=== PATIENT | female | born 1955 | race Caucasian/White ===

== ENCOUNTER → 2018-06-18 10:34 | Outpatient (CLI) | payer BC, SELFPAY ==
--- NOTE | 2018-06-18 10:36 | DI.RAD.S_ITS ---
PROCEDURE: XR FOOT LT MIN 3V INDICATIONS: left foot pain around 5th metatarsal base TECHNIQUE: 3 views of the foot were acquired. COMPARISON: None. FINDINGS: Bones: No fractures or dislocations. No suspicious bony lesions. Soft tissues: No tibiotalar joint effusion. Achilles tendon appears normal. IMPRESSION: No fracture. If the patient's symptoms do not improve recommend followup radiographs in 10 days to assess for healing sclerosis/occult injury. Dictated by: Nicanor Em M.D. on 06/18/2018 at 12:11 Approved by: Nicanor Em M.D. on 06/18/2018 at 12:14
== END ==
PROVIDERS: Visit Provider Physician Assistant
DX: M79.672 Pain in left foot (principal)
CPT/HCPCS: 73630

== ENCOUNTER → 2021-11-28 07:25 | Outpatient (CLI) | payer BC, SELFPAY ==
[2021-11-28 07:56] LABS: Hemoglobin A1C% w Est Avg Glu 5.4 % (4.0-6.0)
[2021-11-28 08:12] LABS: Alanine Aminotransferase 24 IU/L (<35); Albumin 4.3 g/dL (3.5-5.0); Albumin Globulin Ratio 1.3 (1.0-2.8); Alkaline Phosphatase 72 U/L (38-126); Aspartate Aminotransferase 31 IU/L (14-36); BUN Creatinine Ratio 18.8 (6-22); Bilirubin Total 0.4 mg/dL (0.2-1.3); Blood Urea Nitrogen 12 mg/dL (7-17); Carbon Dioxide 29 mmol/L (22-32); Chloride 104 mmol/L (98-107); Cholesterol 231 mg/dL (140-199); Estimated Glomerular Filt Rate > 60 mL/min (>60); Globulin 3.2 g/dL (1.7-4.1); Glucose 99 mg/dL (80-110); HDL Cholesterol 65 mg/dL (40-60); HEMOLYSIS < 15 (0-50); LDL Cholesterol Calculated 154 mg/dL (<100); Potassium 4.2 mmol/L (3.4-5.1); Sodium 138 mmol/L (137-145); Total Protein 7.5 g/dL (6.3-8.2); Triglycerides 62 mg/dL (35-150)
[2021-11-28 08:28] LABS: Vitamin D 25 Hydroxy (D3) 72.5 ng/mL (30.0-100.0)
[2021-11-28 08:43] LABS: TSH w/ Reflex to FT4 1.57 uIU/mL (0.47-4.68)
== END ==
PROVIDERS: PCP Family Medicine; Referring Provider Family Medicine; Visit Provider Family Medicine
DX: E78.2 Mixed hyperlipidemia (principal); R73.9 Hyperglycemia, unspecified; E55.9 Vitamin D deficiency, unspecified; M85.80 Other specified disorders of bone density and structure, unspecified site
CPT/HCPCS: 36415; 80053; 80061; 82306; 83036; 84443

== ENCOUNTER → 2021-12-26 09:37 | Outpatient (CLI) | payer BC, SELFPAY | PROVIDERS: PCP Family Medicine; Referring Provider Family Medicine; Visit Provider Family Medicine | DX: Z13.820 Encounter for screening for osteoporosis (principal); Z78.0 Asymptomatic menopausal state; E78.2 Mixed hyperlipidemia; M85.852 Other specified disorders of bone density and structure, left thigh | CPT/HCPCS: 77080 ==

== ENCOUNTER 2022-04-06 09:01 | Day surgery (SDC) | payer BC, SELFPAY ==
--- NOTE | 2022-04-06 | PATH_ITS ---
[facility] Accession Number: [id number] No. of containers..01 Tissue . 01 Material submitted: . gastrointestinal site - GASTRIC POLYP . 01 Diagnosis: Stomach, Polyp, Biopsy: Fundic gland polyp. No evidence of Helicobacter organisms on H/E stain. Negative for intestinal metaplasia. Negative for dysplasia and malignancy. MRV 04/08/2022 1526 Local . 01 Electronically signed: . Carmelita Carrera MD, Pathologist NPI- [id number] . 01 Gross description: . GASTRIC POLYP: Received in formalin are 2 fragment(s) of mills, soft tissue measuring 0.3 x 0.1 x 0.1 cm to 0.1 x 0.1 x 0.1 cm submitted entirely in 1 cassette(s) /CPE 04/07/2022 0907 Local . 01 Pathologist provided ICD-10: K31.7 . 01 CPT . 076782 Specimen Comment: A courtesy copy of this report has been sent to [phone] Performed at: 01 [facility] [address] [place] [address] [address], [place], [place] [id number] MD Moo Busch MD Phone: [phone]
[2022-04-06] MEDS: LACTATED RINGERS 1,000 ML 100 ML IV (09:16)
[2022-04-06 09:26] VITALS: BP 131/85; PULSE 95; RESP 16; TEMP 36.4; O2SAT 99; BMI 25.5
--- NOTE | 2022-04-06 09:30 | P.HP_ITS ---
History of Present Illness History of Present Illness Date Patient Seen: 04/06/22 Time Patient Seen: 09:30 Chief complaint: SDC Narrative: I reviewed my office note from the fall. Personal history of gastric and colon polyps. Patient History Medical History Allergic rhinitis (~1984) Ankle pain (~1988) Bulimia (~1978) Carpal tunnel syndrome (~1998) Chronic back pain (~1982) Chronic cough (~1984) Foot pain (~2018) Fractures (~2018) Gastric polyps Genital warts (~1980) Hyperlipidemia Insomnia due to medical condition Lichen planus (~2010) Obstructive sleep apnea, adult Osteoarthritis (~2020) Rectal bleed Ruptured tympanic membrane (~2013) Skin cancer (~1998) Sleep apnea (~2007) Vertigo (~2013) Surgical History Anesthesia History of hemorrhoidectomy (~2006) History of repair of rectocele (~12/2019) [place] teeth removed (~1972) Family & Social History Family History Family/Other Loud snoring Sleep apnea Obesity Father Heart disease Alcohol abuse Mother Loud snoring Sleep apnea Obesity Alcohol abuse Family/Other Loud snoring Alcohol abuse Sister History of coronary artery stent placement Stroke Thoracic aortic aneurysm Social History: household members spouse lives independently Yes caregiver/support person No Tobacco & Substance use: Smoking Status Never smoker alcohol intake never Meds Home Medications and Allergies Home Medications Medication Instructions Recorded Confirmed Type docusate sodium 50 mg capsule 50 mg PO DAILY 11/08/19 11/26/21 History (Colace Clear) fexofenadine 180 mg tablet 180 mg PO DAILY 11/08/19 11/26/21 History (Sarina Allergy) B-complex with vitamin C 1 tab PO DAILY 11/25/21 11/26/21 History ascorbic acid (vitamin C) 500 mg 500 mg PO DAILY 11/25/21 04/06/22 History capsule cholecalciferol (vit D3) 1,000 2 tab PO DAILY 11/25/21 11/26/21 History unit-vitamin K2 (MK4) 100 mcg tablet (K2 Plus D3) coenzyme Q10 200 mg capsule (Co 200 mg PO DAILY 11/25/21 11/26/21 History Q-10) melatonin 5 mg capsule mg PO .hs 11/25/21 11/26/21 History zinc gluconate 50 mg tablet 50 mg PO DAILY 11/25/21 11/26/21 History Allergies Allergy/AdvReac Type Severity Reaction Status Date / Time venom-wasp Allergy Intermediate swelling Verified 04/06/22 09:18 paraphenylenediamine Allergy Intermediate Hives Uncoded 04/06/22 09:18 Review of Systems Review of Systems ROS: Yes All systems reviewed with the patient and are negative except as ot herwise documented Exam Const General: cooperative HENMT Head: normal to inspection Eyes General: appearance normal, both eyes and all related structures Neck Neck: normal visual inspection Chest Chest: normal inspection of the chest Resp Effort & Inspection: normal respiratory effort Cardio Rate: regular rate GI Inspection: normal to inspection Skin General: no rashes or lesions noted Neuro General: patient alert and patient awake Extrem General: normal to inspection and no pedal edema Psych Appearance: grossly normal Assessment & Plan Assessment & Plan narrative: 66-year-old female with a personal history of colon and gastric polyps. EGD and colonoscopy are pursued today. Time Spent With Patient Critical Care time: I spent a total of [] minutes of critical care time on this patient's care today; this time is exclusive of procedural time.
--- NOTE | 2022-04-06 09:31 | PM.PREOP ---
Pre-operative Note Interval Note History & Physical reviewed/Exam performed by Physician: Yes Changes to H&P: No ASA Class (for procedural sedation): III
--- NOTE | 2022-04-06 10:08 | SUR.OPER ---
GLASSES TO PACU WITH PATIENT IN LABELED CASE
[2022-04-06 10:38] VITALS: BP 121/74; PULSE 87; RESP 16; TEMP 36.7; O2SAT 97
--- NOTE | 2022-04-06 10:38 | PM.OP.EC ---
Operative Date/Time/Diagnoses Date of procedure: 04/06/22 Time of procedure: 10:38 Pre-op diagnosis: Gastric and colon polyp history Post-op diagnosis: same Procedure & Clinicians Study performed: EGD with biopsies and colonoscopy Indications: Gastric and colon polyp history Surgeon: Pablito Sloan Procedure Notes SCOAP/Timeout: Done Procedure in detail: After the risks and benefits were explained, written and verbal informed consent was obtained. The patient was brought into the procedure room and placed into the left lateral decubitus position. Please see anesthesia notes for sedation details. The scope was introduced into the mouth through the bite block and advanced under direct visualization to the 2nd portion of the duodenum. The scope was slowly withdrawn carefully examining the mucosa for any defects or lesions. Retroflexed views were accomplished in the stomach. The stomach was decompressed, the scope was then removed from the patient who tolerated the procedure well. The patient was then turned around and a digital rectal exam accomplished. The scope was introduced into the rectum and advanced to the cecum as identified by the appendiceal orifice and ileocecal valve. The scope was slowly withdrawn to carefully examine the mucosa for any defects or lesions. Multiple direct views were made through the dentate line for exclusion of pathology. The colon was decompressed scope removed from the patient who tolerated the procedure well. Pediatric colonoscope Bowel prep adequate Scope withdrawal time: 7 minutes Sedation minutes: 24 Complications: none Impression: 1. Duodenum: This was rather tortuous but I did not appreciate any obvious mucosal pathology from the bulb into the corner into D2. 2. Stomach: No overt pathology no ulcers no mass lesions. Retroflexed views disclosed a small sliding hiatal hernia. There were a few benign diminutive polyps in the proximal stomach. A couple of these were sampled for a order entry representative histology. 3. Esophagus: The squamocolumnar junction correlated with the top of the gastric folds. GEJ was at about 37 cm from the incisors. The patient had LA grade B erosive esophagitis. No additional mucosal pathology was appreciated throughout. 4. Colon: The patient had a rather extensive diverticulosis through the sigmoid. They were even some scattered diverticula in the right colon. There was evidence of retained sutures and prior surgery involving the rectum. No stenosis. Suture line was approximately 2 cm from the dentate line. Grade 2-3 mild hemorrhoids nonthrombosed were noted. Endoscopic diagnosis 1. Diminutive gastric polyps 2. LA grade B erosive esophagitis 3. Diverticulosis 4. Hemorrhoids 5. Prior rectal surgery suture line Post-procedure Plan for aftercare: 1. Await histopathology. 2. Upper endoscopy surveillance is unlikely to be recommended if pathology is again returned fundic gland polyps. 3. Repeat colonoscopy 7 years 4. Consider [id number] anti-reflux therapy with either famotidine or omeprazole. Disposition: PACU
[2022-04-06 10:44] VITALS: BP 121/71; PULSE 87; RESP 14; TEMP 37.3; O2SAT 99
[2022-04-06 11:04] VITALS: BP 142/76; PULSE 64; RESP 15; TEMP 37.2; O2SAT 99
[2022-04-06 11:40] VITALS: BP 131/85; PULSE 95; RESP 16; TEMP 36.8; O2SAT 98
== END 2022-04-06 11:44 | disposition home or self-care (01) ==
PROVIDERS: PCP Family Medicine; Referring Provider Internal Medicine Gastroenterology; Visit Provider Internal Medicine Gastroenterology
PROC: 0DJ08ZZ Inspection of Upper Intestinal Tract, Via Natural or Artificial Opening Endoscopic (ICD-10-PCS; CPT 43235; principal; 2022-04-06 10:00)
PROC: 0DJD8ZZ Inspection of Lower Intestinal Tract, Via Natural or Artificial Opening Endoscopic (ICD-10-PCS; CPT 45378; 2022-04-06 10:00)
DX: Z12.11 Encounter for screening for malignant neoplasm of colon (principal); Z86.010 Personal history of colon polyps; Z87.19 Personal history of other diseases of the digestive system; K31.7 Polyp of stomach and duodenum; K44.9 Diaphragmatic hernia without obstruction or gangrene; K20.90 Esophagitis, unspecified without bleeding; K57.30 Diverticulosis of large intestine without perforation or abscess without bleeding; K64.2 Third degree hemorrhoids
CPT/HCPCS: 43239; 45378; J2704; J3010

== ENCOUNTER → 2022-12-11 12:24 | Outpatient (CLI) | payer BC, SELFPAY ==
[2022-12-11 13:43] LABS: Add Manual Diff / Slide Review NO; Basophils Absolute Auto 0 /uL (0-100); Basophils Percent Auto 0.6 % (0-2); Eosinophils Absolute Auto 100 /uL (0-450); Eosinophils Percent Auto 2.1 % (2-4); Hematocrit 38.6 % (36-46); Lymphocytes Absolute Auto 1500 /uL (1100-4500); Lymphocytes Percent Auto 34.5 % (25-40); Mean Corpuscular HGB Conc 33.7 % (30-36); Mean Corpuscular Hemoglobin 29.5 PG (26-34); Mean Corpuscular Volume 87.6 fL (80-100); Monocytes Absolute Auto 300 /uL (0-900); Monocytes Percent Auto 7.7 % (3-14); Neutrophils Absolute Auto 2400 /uL (1500-7000); Neutrophils Percent Auto 55.1 % (50-75); Platelet Count 212 X10^3/uL (150-400); Red Blood Cell Count 4.41 X10^6/uL (4.0-5.2); Red Cell Distribution Width 14.6 % (11.6-14.8); White Blood Cell Count 4.4 X10^3/uL (4.5-11.0)
[2022-12-11 13:58] LABS: Alanine Aminotransferase 29 IU/L (<35); Albumin 4.5 g/dL (3.5-5.0); Albumin Globulin Ratio 1.5 (1.0-2.8); Alkaline Phosphatase 65 U/L (38-126); Aspartate Aminotransferase 30 IU/L (14-36); BUN Creatinine Ratio 20.7 (6-22); Bilirubin Total 0.5 mg/dL (0.2-1.3); Blood Urea Nitrogen 12 mg/dL (7-17); Calcium 9.6 mg/dL (8.4-10.2); Carbon Dioxide 30 mmol/L (22-32); Chloride 103 mmol/L (98-107); Cholesterol 216 mg/dL (140-199); Estimated Glomerular Filt Rate > 60 mL/min (>60); Globulin 3.1 g/dL (1.7-4.1); Glucose 97 mg/dL (80-110); HDL Cholesterol 74 mg/dL (40-60); HEMOLYSIS 18 (0-50); LDL Cholesterol Calculated 125 mg/dL (<100); Potassium 3.8 mmol/L (3.4-5.1); Sodium 139 mmol/L (137-145); Total Protein 7.6 g/dL (6.3-8.2); Triglycerides 85 mg/dL (35-150)
[2022-12-11 14:44] LABS: TSH w/ Reflex to FT4 1.08 uIU/mL (0.47-4.68)
[2022-12-11 15:59] LABS: Vitamin D 25 Hydroxy (D3) 50.5 ng/mL (30.0-100.0)
[2022-12-12 15:10] LABS: Apolipoprotein B 87 mg/dL (<90)
[2022-12-15 06:00] LABS: Lipoprotein (a) 50.2 nmol/L (<75.0)
== END ==
PROVIDERS: PCP Family Medicine; Referring Provider Family Medicine; Visit Provider Family Medicine
DX: E78.5 Hyperlipidemia, unspecified (principal); G47.33 Obstructive sleep apnea (adult) (pediatric); K62.5 Hemorrhage of anus and rectum; K31.7 Polyp of stomach and duodenum; E55.9 Vitamin D deficiency, unspecified; Z82.49 Family history of ischemic heart disease and other diseases of the circulatory system
CPT/HCPCS: 36415; 80053; 80061; 82172; 82306; 83695; 84443; 85025

== ENCOUNTER → 2023-03-15 09:00 | Outpatient (CLI) | payer BC, SELFPAY ==
--- NOTE | 2023-03-15 09:01 | DI.US.S_ITS ---
ULTRASOUND OF RIGHT BREAST: 03/15/2023 CLINICAL: Palpable right breast lump. Comparison is made to exams dated: 03/15/2023 mammogram - [facility], 05/19/2021 mammogram - [facility], 01/25/2020 mammogram, 09/05/2018 mammogram, and 09/23/2016 mammogram - [facility]. Color flow and real-time ultrasound of the right breast were performed on the areas of interest. Koenig scale images of the real-time examination were reviewed. There are multiple various size irregular simple cysts in the right breast superior lateral quadrant middle depth. These irregular simple cysts are anechoic with well-defined boundaries, internal echoes, and posterior acoustic enhancement. These correlate with mammography findings. Color flow imaging demonstrates that there is no vascularity present. IMPRESSION: PROBABLY BENIGN The multiple various size irregular simple cysts in the right breast likely represent a resolving hematoma and are probably benign. A follow-up mammogram and an ultrasound in 6 months is recommended to demonstrate resolution. This exam was interpreted at Station ID: [id number]. Electronically Signed By: Debby segundo/:03/15/2023 10:16:05 letter sent: Followup Recommended Ultrasound BI-RADS: 3 Probably benign
--- NOTE | 2023-03-15 09:01 | DI.MG.S_ITS ---
BILATERAL DIGITAL DIAGNOSTIC MAMMOGRAM 3D/2D: 03/15/2023 CLINICAL: Right breast lump Via trauma. Comparison is made to exams dated: 05/19/2021 mammogram - [facility], 01/25/2020 mammogram, and 09/05/2018 mammogram - [facility]. There are scattered areas of fibroglandular density in both breasts (category b / 25%-50% glandular tissue). There is a focal asymmetry in the right breast at 11 o'clock middle depth. No other significant masses, calcifications, or other findings are seen in either breast. IMPRESSION: INCOMPLETE: NEEDS ADDITIONAL IMAGING EVALUATION A targeted ultrasound of the right breast is recommended and will be performed immediately following this exam. The focal asymmetry in the right breast likely represents a hematoma and is indeterminate. An ultrasound is recommended. Based on the Tyrer Cuzick model (a risk assessment model) the patient's lifetime risk is 7.3% and her 10 year risk is 3.7%. According to the ACR, ACS, and NCCN guidelines, an annual breast MRI exam along with mammogram is recommended if the patient's lifetime risk is 20% or greater. This exam was interpreted at Station ID: [id number]. NOTE: For mammograms, a report in lay terms will be sent to the patient. Approximately 15% of breast malignancies will not be visualized mammographically. In the management of a palpable breast mass, a negative mammogram must not discourage biopsy of a clinically suspicious lesion. Electronically Signed By: Debby segundo/radha:03/15/2023 09:46:04 ACR BI-RADS Category 0: Incomplete 3340F
== END ==
LOC: MAMMO 09:00
PROVIDERS: PCP Family Medicine; Referring Provider Family Medicine; Visit Provider Family Medicine
DX: N63.11 Unspecified lump in the right breast, upper outer quadrant (principal); R92.2 Inconclusive mammogram; N60.01 Solitary cyst of right breast; R92.323 Mammographic fibroglandular density, bilateral breasts
CPT/HCPCS: 76642; 77066; G0279

== ENCOUNTER → 2023-05-05 16:31 | Outpatient (CLI) | payer BC, SELFPAY ==
--- NOTE | 2023-05-05 16:32 | DI.US.S_ITS ---
PROCEDURE: US ABDOMEN LIMITED INDICATIONS: MASS INFERIOR TO RIGHT SCAPULA ?LIPOMA TECHNIQUE: Real-time scanning was performed of the abdominal and retroperitoneal organs, with image documentation. COMPARISON: None. FINDINGS: Ultrasound was performed in the area of palpable abnormality in the right back inferior to scapula. No sonographic abnormality is identified. IMPRESSION: No sonographic abnormality is identified in the area of interest. If clinical symptoms persist or clinical suspicion for pathology is high, consider CT or MRI with contrast for further evaluation. Dictated by: Bobby Valdez M.D. on 05/06/2023 at 9:39 Approved by: Bobby Valdez M.D. on 05/06/2023 at 9:40
== END ==
PROVIDERS: PCP Family Medicine; Referring Provider Physician Assistant; Visit Provider Physician Assistant
DX: R22.2 Localized swelling, mass and lump, trunk (principal)
CPT/HCPCS: 76705

== ENCOUNTER → 2023-06-24 10:27 | Outpatient (CLI) | payer BC, SELFPAY ==
--- NOTE | 2023-06-24 10:28 | DI.RAD.S_ITS ---
PROCEDURE: XR DEXA AXIAL SKELETON INDICATIONS: Osteopenia COMPARISON: [facility], CR, XR DEXA AXIAL SKELETON, 12/26/2021, 11:07. FINDINGS: Lumbar Spine: Bone mineral density is 0.87 g/cm2, T score -1.6, previously -1.7. Left Hip: Bone mineral density 0.85 g/cm2, T score -0.8, previously -0.7. Left Femoral Neck: Bone mineral density is 0.63 g/cm2, T score -2, previously -1.8. Right Hip: Bone mineral density is 0.85 g/cm2, T score -0.8, previously -0.6. Right Femoral Neck: Bone mineral density is 0.64 g/cm2, T score -1.9, previously -1.6. Fracture Risk Calculation (when applicable): 10-year fracture risk of a major osteoporotic fracture 11% and of a hip fracture 1.6% (T score greater or equal to -1.0 to: NORMAL) (T score from -1.1 to -2.4: OSTEOPENIA) (T score less than or equal to -2.5: OSTEOPOROSIS) IMPRESSION: Osteopenia with FRAX risks as above. Follow-up guidelines as follows: Osteoporosis: Consider a repeat DEXA and Vertebral Fracture Assessment (VFA) exam in 2 years or sooner if medically necessary, to reassess this patient's status. Osteopenia: Consider a repeat DEXA in 2-3 years to reassess this patient's status, or if there is a new clinical indication. Normal: Consider a repeat DEXA in 5 years or sooner, or if there is a new clinical indication. Dictated by: Marin Brady M.D. on 06/24/2023 at 15:34 Approved by: Marin Brady M.D. on 06/24/2023 at 15:37
== END ==
LOC: RAD 10:28
PROVIDERS: PCP Family Medicine; Referring Provider Family Medicine; Visit Provider Family Medicine
DX: M85.89 Other specified disorders of bone density and structure, multiple sites (principal)
CPT/HCPCS: 77080

== ENCOUNTER → 2023-09-06 08:28 | Outpatient (CLI) | payer BC, SELFPAY ==
--- NOTE | 2023-09-06 08:29 | DI.MG.S_ITS ---
UNILATERAL RIGHT DIGITAL DIAGNOSTIC MAMMOGRAM 3D/2D SHORT-TERM FOLLOW-UP: 09/06/2023 CLINICAL: Patient returns for a 6 month follow up of the right breast. Comparison is made to exams dated: 03/15/2023 mammogram - [facility], 05/19/2021 mammogram - [facility], and 01/25/2020 mammogram - [facility]. There are scattered areas of fibroglandular density in the right breast (category b / 25%-50% glandular tissue). There is a stable focal asymmetry in the right breast at 11 o'clock middle depth. No other significant masses or calcifications are seen in the breast. IMPRESSION: INCOMPLETE: NEEDS ADDITIONAL IMAGING EVALUATION The stable focal asymmetry in the right breast is indeterminate. An ultrasound is recommended. Based on the Tyrer Cuzick model (a risk assessment model) the patient's lifetime risk is 7.3% and her 10 year risk is 3.7%. According to the ACR, ACS, and NCCN guidelines, an annual breast MRI exam along with mammogram is recommended if the patient's lifetime risk is 20% or greater. This exam was interpreted at Station ID: [id number]. NOTE: For mammograms, a report in lay terms will be sent to the patient. Approximately 15% of breast malignancies will not be visualized mammographically. In the management of a palpable breast mass, a negative mammogram must not discourage biopsy of a clinically suspicious lesion. Electronically Signed By: Marin Brady M.D. lc/:09/06/2023 10:14:14 ACR BI-RADS Category 0: Incomplete 3340F
--- NOTE | 2023-09-06 08:29 | DI.US.S_ITS ---
ULTRASOUND OF RIGHT BREAST: 09/06/2023 CLINICAL: 6 month follow-up of hematoma. Comparison is made to exams dated: 09/06/2023 mammogram, 03/15/2023 ultrasound, 03/15/2023 mammogram - [facility], 05/19/2021 mammogram - [facility], and 01/25/2020 mammogram - [facility]. Real-time ultrasound of the right breast was performed. Koenig scale images of the real-time examination were reviewed. At 11:00 5-6cm from the nipple, various size possible complicated cysts are seen measuring up to 8-10mm in long axis. Internal echoes and septations are seen. IMPRESSION: PROBABLY BENIGN At 11:00 5-6cm from the nipple, various size possible complicated cysts are seen measuring up to 8-10mm in long axis. Internal echoes and septations are seen. These are probably benign and were previously palpable A follow-up mammogram and an ultrasound in 6 months is recommended to demonstrate stability. This exam was interpreted at Station ID: [id number]. Electronically Signed By: Marin Brady M.D. lc/:09/06/2023 10:20:12 letter sent: Followup Recommended Ultrasound BI-RADS: 3 Probably benign
== END ==
PROVIDERS: PCP Family Medicine; Referring Provider Family Medicine; Visit Provider Family Medicine
DX: R92.8 Other abnormal and inconclusive findings on diagnostic imaging of breast (principal); N60.01 Solitary cyst of right breast; R92.321 Mammographic fibroglandular density, right breast
CPT/HCPCS: 76642; 77065; G0279

== ENCOUNTER → 2023-10-29 12:52 | Outpatient (CLI) | payer BC, SELFPAY ==
--- NOTE | 2023-10-29 12:53 | DI.RAD.S_ITS ---
PROCEDURE: XR ANKLE RT MIN 3V INDICATIONS: right foot ankle pain TECHNIQUE: 3 views of the ankle were acquired. COMPARISON: None. FINDINGS: Bones: Minor spurring anterior tibial plafond and the adjacent anterior talar neck may predispose to anterior impingement on ankle dorsiflexion. No other osseous abnormalities. Tibiotalar and talocalcaneal joints: Normal in width and alignment without arthritic change. Soft tissues: Mild diffuse soft swelling noted. IMPRESSION: Chronic findings as described Dictated by: Cornel Bowens M.D. on 11/01/2023 at 7:40 Approved by: Cornel Bowens M.D. on 11/01/2023 at 7:41
--- NOTE | 2023-10-29 12:53 | DI.RAD.S_ITS ---
PROCEDURE: XR FOOT RT MIN 3V INDICATIONS: right foot ankle pain TECHNIQUE: 3 views of the foot were acquired. COMPARISON: [facility], CR, XR FOOT LT MIN 3V, 06/18/2018, 11:33. FINDINGS: Bones: There are no osseous abnormalities Joints: Mild degeneration the 1st MTP and 2nd through 5th interphalangeal joints noted. Hammertoe deformities in the 2nd through 5th digits noted. Soft tissues: No soft tissue abnormality. IMPRESSION: Chronic findings as described. Dictated by: Cornel Bowens M.D. on 11/01/2023 at 7:34 Approved by: Cornel Bowens M.D. on 11/01/2023 at 7:35
== END ==
PROVIDERS: PCP Family Medicine; Referring Provider Physician Assistant; Visit Provider Physician Assistant
DX: M19.071 Primary osteoarthritis, right ankle and foot (principal); M20.41 Other hammer toe(s) (acquired), right foot; M79.671 Pain in right foot; M25.571 Pain in right ankle and joints of right foot; M79.89 Other specified soft tissue disorders
CPT/HCPCS: 73610; 73630

== ENCOUNTER → 2024-03-21 12:21 | Outpatient (CLI) | payer BC, SELFPAY ==
--- NOTE | 2024-03-21 | DI.MG.S_ITS ---
BILATERAL DIGITAL DIAGNOSTIC MAMMOGRAM 3D/2D: 03/21/2024 CLINICAL: Short term follow up, due bilateral. Comparison is made to exams dated: 09/06/2023 mammogram, 03/15/20[address] mammogram - [facility], 05/19/2021 mammogram - [facility], and 01/25/2020 mammogram - [facility]. There are scattered areas of fibroglandular density (category b / 25%-50% glandular tissue). There are evolving areas of fat necrosis and oil cysts in the right breast at 11 o'clock middle depth. This corresponds to previously described focal asymmetry and prior area of palpable concern related to prior trauma. No significant masses, calcifications, or other findings are seen in either breast. IMPRESSION: INCOMPLETE: NEED ADDITIONAL IMAGING EVALUATION Right breast evolving fat necrosis and oil cysts at 11 o'clock middle depth related to history of prior trauma. An ultrasound is recommended for further evaluation and is scheduled to immediately follow this examination. Based on the Tyrer Cuzick model (a risk assessment model) the patient's lifetime risk is 6.9% and her 10 year risk is 3.6%. According to the ACR, ACS, and NCCN guidelines, an annual breast MRI exam along with mammogram is recommended if the patient's lifetime risk is 20% or greater. This exam was interpreted at Station ID: [id number]. NOTE: For mammograms, a report in lay terms will be sent to the patient. Approximately 15% of breast malignancies will not be visualized mammographically. In the management of a palpable breast mass, a negative mammogram must not discourage biopsy of a clinically suspicious lesion. Electronically Signed By: Desi Andrews M.D., Ph.D. eb/:03/21/2024 13:12:59 letter sent: Additional Imaging Needed ACR BI-RADS Category 0: Incomplete: Need Additional Imaging Evaluation
--- NOTE | 2024-03-21 12:23 | DI.US.S_ITS ---
LIMITED ULTRASOUND OF RIGHT BREAST: 03/21/2024 CLINICAL: 6 month follow-up of cysts. Comparison is made to exams dated: 03/21/2024 mammogram, 09/06/2023 ultrasound, 09/06/2023 mammogram, 03/15/2023 ultrasound, 03/15/2023 mammogram - [facility], and 05/19/2021 mammogram - [facility]. Color flow and real-time ultrasound of the right breast 11-12 o'clock region were performed. Koenig scale images of the real-time examination were reviewed. There is redemonstration of multiple oil cysts in the right breast at 11 o'clock at a distance of 2-4 cm from the nipple. Since prior ultrasound 09/06/2023, these findings have become increasingly anechoic. These correspond to mammographic findings. IMPRESSION: BENIGN Right breast evolving fat necrosis/oil cysts seen at the 11 o'clock position is consistent with prior history of trauma in the right breast. Finding is benign. No mammographic or sonographic evidence of malignancy. A 1 year screening mammogram is recommended. Findings and recommendations were conveyed to the patient during today's evaluation. This exam was interpreted at Station ID: [id number]. Electronically Signed By: Desi Andrews M.D., Ph.D. eb/:03/21/2024 13:35:59 letter sent: Normal Exam ACR BI-RADS Category 2: Benign
== END ==
PROVIDERS: PCP Family Medicine; Referring Provider Family Medicine; Visit Provider Family Medicine
DX: R92.8 Other abnormal and inconclusive findings on diagnostic imaging of breast (principal); N60.01 Solitary cyst of right breast; N64.1 Fat necrosis of breast
CPT/HCPCS: 76642; 77066; G0279

== ENCOUNTER 2024-04-01 17:29 | Emergency (ER) | payer BC, SELFPAY ==
[2024-04-01 17:31] VITALS: BP 142/85; PULSE 89; RESP 16; TEMP 36.8; O2SAT 96; BMI 29.2
[2024-04-01 17:36] VITALS: BP 142/85; PULSE 96; O2SAT 97
--- NOTE | 2024-04-01 17:50 | ED_ITS ---
<Statement entered by Evert Roach DO - 04/01/24 20:15> Dr. Roach: I was immediately available in the department for consultation. I did not actually see the patient. HPI - Animal Bite General Chief Complaint: Animal Bite Stated Complaint: bit by dog Time Seen by Provider: 04/01/24 17:50 Source: patient Mode of arrival: Ambulatory History of Present Illness HPI narrative: Ms. Pham is a pleasant 68 year old female with no reported past medical history presents to the emergency department after sustaining a dog bite to her left hand at approximately 3:15 p.m. this afternoon. Patient states that there was a homeless lady sitting outside of the door with her dog and she attempted to cover the dog with a blanket to be nice with the dog turned around and bit her left hand. She was not able to get any of the contact information for the dog intelligence specialist, at 1st she did not think the bite broken a skin however she later developed some bleeding from the spot which prompted her to come to the emergency department. Her tetanus shot was 09/01/2022. She is not allergic to any medications and is not on any blood thinners. She denies any pain of the hand. Related Data Home Medications Medication Instructions Recorded Confirmed docusate sodium 50 mg capsule 50 mg PO DAILY 11/08/19 03/02/24 (Colace Clear) fexofenadine 180 mg tablet 180 mg PO DAILY 11/08/19 03/02/24 (Sarina Allergy) cholecalciferol (vit D3) 1,000 2 tab PO DAILY 11/25/21 03/02/24 unit-vitamin K2 (MK4) 100 mcg tablet (K2 Plus D3) melatonin 5 mg capsule mg PO .hs 11/25/21 03/02/24 zinc gluconate 50 mg tablet 50 mg PO DAILY 11/25/21 03/02/24 omeprazole magnesium 20 mg 20 mg PO DAILY 12/08/22 03/02/24 capsule,delayed release (Acid Assembly Instructions Writer (omeprazole)) clobetasol 0.05 % topical ointment topical 03/02/24 03/02/24 Previous Rx's Medication Instructions Recorded amoxicillin 875 mg-potassium 1 tab PO BID 5 days #10 tabs 04/01/24 clavulanate 125 mg tablet Allergies Allergy/AdvReac Type Severity Reaction Status Date / Time venom-wasp Allergy Intermediate swelling Verified 03/02/24 16:37 paraphenylenediamine Allergy Intermediate Hives Uncoded 03/02/24 16:37 Review of Systems Review of Systems ROS Unobtainable: All systems reviewed & are unremarkable except as noted in HPI and below Patient History Medical History Hyperlipidemia Osteoarthritis (~2020) Sleep apnea (~2007) Chronic cough (~1984) Bulimia (~1978) Fractures (~2018) Foot pain (~2018) Chronic back pain (~1982) Carpal tunnel syndrome (~1998) Ankle pain (~1988) Vertigo (~2013) Ruptured tympanic membrane (~2013) Lichen planus (~2010) Genital warts (~1980) Skin cancer (~1998) Rectal bleed Gastric polyps Allergic rhinitis (~1984) Obstructive sleep apnea, adult Insomnia due to medical condition Surgical History Anesthesia [place] teeth removed (~1972) History of hemorrhoidectomy (~2006) History of repair of rectocele (~12/2019) Family History Family/Other Loud snoring Sleep apnea Obesity Father Heart disease Alcohol abuse Mother Loud snoring Sleep apnea Obesity Alcohol abuse Family/Other Loud snoring Alcohol abuse Sister History of coronary artery stent placement Stroke Thoracic aortic aneurysm Social History marital status: details: dario Bangura, lives in [place] number of children: 4 household members: spouse lives independently: Yes caregiver/support person: No housing: house education level: other occupational status: employed Smoking Status: Never smoker alcohol intake: never substance use type: does not use Smoking Status: Never smoker Exam Narrative Exam Narrative: GENERAL: 68 year old patient appears stated age. Well-developed patient, in no acute distress. HEAD: Atraumatic. Normocephalic. CARDIOVASCULAR: Regular rate RESPIRATORY: ?Nonlabored respirations. ?Speaking in clear, full sentences. ?? EXTREMITIES: Full range of motion of left hand, strong radial pulse, brisk capillary refill, sensation intact to light touch and distribution of median, radial, ulnar nerve. NEURO: AOx3. ?Clear speech. ?Moves all 4 extremities appropriately. SKIN: 2 mm superficial laceration/abrasion dorsal aspect left hand in web space between 1st and 2nd digits Initial Vital Signs Initial Vital Signs: Vital Signs Temperature 98.2 F 04/01/24 17:31 Pulse Rate 89 04/01/24 17:31 Respiratory Rate 16 04/01/24 17:31 Blood Pressure 142/85 H 04/01/24 17:31 Pulse Oximetry 96 04/01/24 17:31 Oxygen Delivery Method Room Air 04/01/24 17:31 Course Orders Ordered: Discontinued Medications Amoxicillin/Clavulanate Potassium (Amoxicillin/Clav 875/125 Mg) 1 tab PO NOW ONE Stop: 04/01/24 18:23 Last Admin: 04/01/24 18:29 Dose: 1 tab Rabies Immune Globulin (Rabies Immune Globulin 300 Unit/Ml 3ml Vial) 1,542 unit 20 unit/kg (1542 unit) IM NOW ONE Stop: 04/01/24 18:39 Rabies Vaccine (Rabies Vaccine (Rabavert) 2.5 Units Syringe) 2.5 units IM .ONCE ONE Stop: 04/01/24 18:39 Last Admin: 04/01/24 18:59 Dose: 2.5 units Vital Signs Vital signs: Vital Signs - 8 hr 04/01/24 17:31 Temperature 98.2 F Pulse Rate 89 Respiratory Rate 16 Blood Pressure 142/85 H Pulse Oximetry 96 Oxygen Delivery Method Room Air MDM - Animal Bite Medical Records Attestation: I reviewed the patient's medical records. [facility] Narrative Medical decision making narrative: 68 year old female with no reported past medical history presents to the emergency department after sustaining a dog bite to her left hand at approx imately 3:15 p.m. this afternoon. Differential diagnosis includes but is not limited to laceration, puncture wound, abrasion, infection, rabies exposure, etc. On exam patient is in no acute distress, nontoxic appearing, vital signs appropriate. She has a very superficial wound on the left hand, no pain with palpation or range of motion of the hand, neurovascularly intact. Bite from a homeless women's dog, unable to contact the intelligence specialist or track down the dog, after shared decision-making the patient would like to proceed with rabies post exposure prophylaxis, she understands the risk of rabies from a dog is low but unable to monitor dog or do 10 day quarantine. We will treat with rabies immune globulin 20 international units/kilogram and rabies vaccine today, patient understands to return on days 3, 7, 14 for subsequent rabies vaccine doses. Dog bite form was filled out. Patient discussed that she may try to reach out of the police/animal control to see of the dog can be located. Patient was provided with 1st dose of Augmentin in the emergency department, we will treat empirically with Augmentin b.i.d. x5 days, discussed proper wound care. The dog bite wound was cleansed and irrigated extensively with both Betadine and tap water. First dose of vaccine was administered into the right deltoid, immune globulin was injected adjacent to the wound in the left hand and the remainder was injected into the left thigh. Patient provided with appropriate dates to return to the ED for subsequent vaccine doses. She verbalized understanding of all information, all of her questions were answered. ED return precautions discussed. She is stable for discharge home. Discharge Plan Departure Patient Disposition: Home Clinical Impression: Need for post exposure prophylaxis for rabies Dog bite of left hand Qualifiers: Encounter type: initial encounter Qualified Code(s): S61.452A - Open bite of left hand, initial encounter Instructions: DI for Dog Bite Activity Restrictions/Additional Instructions: Thank you for coming to the emergency department. Today you were evaluated for a dog bite to the left hand. The wound was cleansed and you were given the first dose of antibiotics. You also made the decision to start rabies post exposure prophylaxis, and today you received the rabies immune globulin and day 0 of the rabies vaccine. You will need to return to the emergency department on on days ?3, 7, 14 for subsequent doses of the rabies vaccine. Please feel free to contact the local health department or animal control for further guidance. Day 0: Apr 01 (today) Day 3: Apr 04Wednesday Day 7: April 08Wednesday Day 14: April 15Wednesday For the wound on your hand, please keep it clean, dry, covered with a bandage and antibiotic ointment at all time. Avoid soaking the hand in any water such as pool, ocean, dish water. Complete the full course of antibiotics. If you developed increased redness, swelling, heat around the wound or streaking redness or pus drainage from the wound return to the ER immediately. Please follow up with your primary care doctor within the next 2-3 days for ER follow-up. (If you do not have a PCP you can call [phone]. ?to schedule an appointment with an [facility] Primary Care Provider) IF YOU DEVELOP ANY NEW OR WORSENING SYMPTOMS, RETURN TO THE ER! Please read the attached instructions, they highlight more specific treatments and interventions for you at home. Thank you for letting me participate in your care, Piedad Goldberg PA-C Prescriptions: New amoxicillin-pot clavulanate 875-125 mg tablet 1 tab PO BID 5 Days Qty: 10 0RF No Action omeprazole magnesium [Acid Assembly Instructions Writer (omeprazole)] 20 mg capsule,delayed release(DR/EC) 20 mg PO DAILY K2 Plus D3 1,000-100 unit-mcg tablet 2 tab PO DAILY melatonin 5 mg capsule PO .hs zinc gluconate 50 mg tablet 50 mg PO DAILY clobetasol 0.05 % ointment topical fexofenadine [Sarina Allergy] 180 mg tablet 180 mg PO DAILY Colace Clear 50 mg capsule 50 mg PO DAILY Referrals: Gilbert Jensen MD [Primary Care Provider] - Stand Alone Forms: Patient Portal/API/Survey
[2024-04-01] MEDS: AMOXICILLIN/CLAV 875/125 MG 1 TAB PO (18:29)
[2024-04-01] MEDS: RABIES VACCINE (RABAVERT) 2.5 UNITS SYRINGE IM (18:59)
[2024-04-01] MEDS: RABIES IMMUNE GLOBULIN 300 UNIT/ML 1542 UNIT IM (19:10)
[2024-04-01 19:42] VITALS: BP 158/89; PULSE 76; TEMP 36.4; O2SAT 95
--- NOTE | 2024-04-01 19:52 | PC.NURSE ---
Small bite noted on left hand after pt attempted to cover homeless dog with towel/blanket; dog retaliated and bit pt in hand. Pt states her tetanus is UTD
[2024-04-01 19:53] VITALS: RESP 16
== END 2024-04-01 19:54 | disposition home or self-care (01) ==
PROVIDERS: Emergency Provider Physician Assistant; PCP Family Medicine
DX: S61.452A Open bite of left hand, initial encounter (principal); W54.0XXA Bitten by dog, initial encounter; Z20.3 Contact with and (suspected) exposure to rabies; Z23 Encounter for immunization
CPT/HCPCS: 90375; 90471; 90675; 96372; 99283

== ENCOUNTER 2024-04-04 09:31 | Emergency (ER) | payer BC, SELFPAY ==
[2024-04-04 09:40] VITALS: BP 134/67; PULSE 87; RESP 18; TEMP 36.5; O2SAT 98; BMI 29.2
--- NOTE | 2024-04-04 09:40 | ED.GENADULT ---
HPI - General Adult General Chief complaint: Recheck/Abnormal Lab/Rx Stated complaint: 2nd Rabies shot Time Seen by Provider: 04/04/24 09:40 Source: patient, RN notes reviewed and old records reviewed Mode of arrival: Ambulatory Limitations: no limitations History of Present Illness HPI narrative: 68-year-old female presents for rabies immunization after sustaining a dog bite to her left hand was seen on 04/01/2024 in his following up for her 2nd immunization. Tetanus was updated in 2022. She has been taking Augmentin for the dog bite. Patient states everything has been we had healing well. She accidentally scratched with a dog bite the other day it bled a little bit she washed it states it has been doing well otherwise. She states no side effects from her immunization. No other complaints currently. Related Data Home Medications Medication Instructions Recorded Confirmed docusate sodium 50 mg capsule 50 mg PO DAILY 11/08/19 03/02/24 (Colace Clear) fexofenadine 180 mg tablet 180 mg PO DAILY 11/08/19 03/02/24 (Sarina Allergy) cholecalciferol (vit D3) 1,000 2 tab PO DAILY 11/25/21 03/02/24 unit-vitamin K2 (MK4) 100 mcg tablet (K2 Plus D3) melatonin 5 mg capsule mg PO .hs 11/25/21 03/02/24 zinc gluconate 50 mg tablet 50 mg PO DAILY 11/25/21 03/02/24 omeprazole magnesium 20 mg 20 mg PO DAILY 12/08/22 03/02/24 capsule,delayed release (Acid Superintendent Job (omeprazole)) clobetasol 0.05 % topical ointment topical 03/02/24 03/02/24 Previous Rx's Medication Instructions Recorded amoxicillin 875 mg-potassium 1 tab PO BID 5 days #10 tabs 04/01/24 clavulanate 125 mg tablet Allergies Allergy/AdvReac Type Severity Reaction Status Date / Time venom-wasp Allergy Intermediate swelling Verified 03/02/24 16:37 paraphenylenediamine Allergy Intermediate Hives Uncoded 03/02/24 16:37 Review of Systems Review of Systems ROS Unobtainable: All systems reviewed & are unremarkable except as noted in HPI and below Patient History Medical History Hyperlipidemia Osteoarthritis (~2020) Sleep apnea (~2007) Chronic cough (~1984) Bulimia (~1978) Fractures (~2018) Foot pain (~2018) Chronic back pain (~1982) Carpal tunnel syndrome (~1998) Ankle pain (~1988) Vertigo (~2013) Ruptured tympanic membrane (~2013) Lichen planus (~2010) Genital warts (~1980) Skin cancer (~1998) Rectal bleed Gastric polyps Allergic rhinitis (~1984) Obstructive sleep apnea, adult Insomnia due to medical condition Surgical History Anesthesia [place] teeth removed (~1972) History of hemorrhoidectomy (~2006) History of repair of rectocele (~12/2019) Family History Family/Other Loud snoring Sleep apnea Obesity Father Heart disease Alcohol abuse Mother Loud snoring Sleep apnea Obesity Alcohol abuse Family/Other Loud snoring Alcohol abuse Sister History of coronary artery stent placement Stroke Thoracic aortic aneurysm Social History marital status: details: dario Bangura, lives in [place] number of children: 4 household members: spouse lives independently: Yes caregiver/support person: No housing: house education level: other occupational status: employed Smoking Status: Never smoker alcohol intake: never substance use type: does not use Smoking Status: Never smoker Exam Narrative Exam Narrative: GENERAL: Alert and oriented x three, female in no acute distress HEENT: Head normocephalic, atraumatic, EOMI, pupils reactive, face symmetric, moist mucous membranes NECK: Supple, full range of motion EXTREMITIES: Normal range of motion, no clubbing or edema. Neurovascularly intact. Patient has small puncture over the left proximal that appears to be clean dry and healing. NEUROLOGICAL: Cranial nerves II through XII grossly intact. Moving all extremities SKIN: Warm, dry, no petechiae, no rashes or lesions otherwise noted. Initial Vital Signs Initial Vital Signs: Vital Signs Temperature 97.7 F 04/04/24 09:40 Pulse Rate 87 04/04/24 09:40 Respiratory Rate 18 04/04/24 09:40 Blood Pressure 134/67 04/04/24 09:40 Pulse Oximetry 98 04/04/24 09:40 Oxygen Delivery Method Room Air 04/04/24 09:40 Course Orders Ordered: Discontinued Medications Rabies Vaccine (Rabies Vaccine (Rabavert) 2.5 Units Syringe) 2.5 units IM .ONCE ONE Stop: 04/04/24 09:41 Last Admin: 04/04/24 09:53 Dose: 2.5 units Documented By: TESSA Vital Signs Vital signs: Vital Signs - 8 hr 04/04/24 09:40 Temperature 97.7 F Pulse Rate 87 Respiratory Rate 18 Blood Pressure 134/67 Pulse Oximetry 98 Oxygen Delivery Method Room Air Medical Decision Making MDM Narrative Medical decision making narrative: 68-year-old female encounter for repeat rabies immunization wound on her hand appears to be healing well from her dog bite. Discharge Plan Departure Patient Disposition: Home Clinical Impression: Encounter for repeat administration of rabies vaccination Instructions: DI for Rabies Vaccine Activity Restrictions/Additional Instructions: Please return for your next immunization placed on the schedule below: Day 7: April 08Wednesday Day 14: April 15Wednesday Return if you developed increased redness, swelling, heat around the wound or streaking redness or pus drainage from the wound return to the ER immediately or any other new or concerning changes. Prescriptions: No Action omeprazole magnesium [Acid Superintendent Job (omeprazole)] 20 mg capsule,delayed release(DR/EC) 20 mg PO DAILY K2 Plus D3 1,000-100 unit-mcg tablet 2 tab PO DAILY melatonin 5 mg capsule PO .hs zinc gluconate 50 mg tablet 50 mg PO DAILY clobetasol 0.05 % ointment topical amoxicillin-pot clavulanate 875-125 mg tablet 1 tab PO BID 5 Days Qty: 10 0RF fexofenadine [Sarina Allergy] 180 mg tablet 180 mg PO DAILY Colace Clear 50 mg capsule 50 mg PO DAILY Referrals: Gilbert Jensen MD [Primary Care Provider] - Stand Alone Forms: Patient Portal/API/Survey
[2024-04-04] MEDS: RABIES VACCINE (RABAVERT) 2.5 UNITS SYRINGE IM (09:53)
--- NOTE | 2024-04-08 08:21 | PC.NURSE ---
04/08/24 @0821-- pt called regarding rabies vaccination. states that more information has been obtained in regard to the dog that bit her and the dogs vaccination status which is fully vaccinated domestic animal. Pt has already received 2 vaccinations in the series and wants to decline the rest. Asking what she is to do with the [facility] form. Advised that she needs to call the [place] [facility] on Wednesday, (today is Wednesday) and ask if she can send in uncompleted form with updated information on the dog's vaccination status. Advised there is nothing the ED needs to do further. Advised to follow up with PCP as needed. Pt number [phone]
== END 2024-04-04 10:05 | disposition home or self-care (01) ==
PROVIDERS: Emergency Provider Emergency Medicine; PCP Family Medicine
DX: Z23 Encounter for immunization (principal); Z71.85 Encounter for immunization safety counseling; S61.452D Open bite of left hand, subsequent encounter; W54.0XXD Bitten by dog, subsequent encounter
CPT/HCPCS: 90471; 90675; 99283; 99284

== ENCOUNTER → 2024-06-21 08:41 | Outpatient (CLI) | payer BC, SELFPAY ==
[2024-06-21 09:46] LABS: Add Manual Diff / Slide Review NO; Basophils Absolute Auto 0 /uL (0-100); Basophils Percent Auto 0.3 % (0-2); Eosinophils Absolute Auto 100 /uL (0-450); Eosinophils Percent Auto 3.6 % (2-4); Hematocrit 39.6 % (36-46); Hemoglobin 13.5 g/dL (12.0-16.0); Lymphocytes Absolute Auto 1400 /uL (1100-4500); Mean Corpuscular HGB Conc 34.1 % (30-36); Mean Corpuscular Hemoglobin 29.1 PG (26-34); Mean Corpuscular Volume 85.4 fL (80-100); Monocytes Absolute Auto 300 /uL (0-900); Monocytes Percent Auto 8.7 % (3-14); Neutrophils Absolute Auto 2100 /uL (1500-7000); Neutrophils Percent Auto 52.4 % (50-75); Platelet Count 194 X10^3/uL (150-400); Red Blood Cell Count 4.63 X10^6/uL (4.0-5.2); Red Cell Distribution Width 14.4 % (11.6-14.8)
[2024-06-21 10:10] LABS: Alanine Aminotransferase 28 IU/L (<35); Albumin 4.5 g/dL (3.5-5.0); Albumin Globulin Ratio 1.9 (1.0-2.8); Alkaline Phosphatase 71 U/L (38-126); Aspartate Aminotransferase 28 IU/L (14-36); BUN Creatinine Ratio 17.4 (6-22); Bilirubin Total 0.6 mg/dL (0.2-1.3); Blood Urea Nitrogen 12 mg/dL (7-17); Calcium 9.5 mg/dL (8.4-10.2); Carbon Dioxide 26 mmol/L (22-32); Chloride 105 mmol/L (98-107); Cholesterol 239 mg/dL (140-199); Estimated Glomerular Filt Rate > 60 mL/min (>60); Globulin 2.4 g/dL (1.7-4.1); Glucose 108 mg/dL (70-99); HDL Cholesterol 73 mg/dL (40-60); HEMOLYSIS < 15 (0-50); LDL Cholesterol Calculated 148 mg/dL (<100); Potassium 4.3 mmol/L (3.4-5.1); Sodium 140 mmol/L (137-145); Total Protein 6.9 g/dL (6.3-8.2); Triglycerides 90 mg/dL (35-150)
[2024-06-21 10:13] LABS: Hemoglobin A1C% w Est Avg Glu 5.7 % (4.0-6.0)
[2024-06-21 10:29] LABS: Vitamin D 25 Hydroxy (D3) 65.8 ng/mL (30.0-100.0)
[2024-06-21 10:38] LABS: TSH w/ Reflex to FT4 1.21 uIU/mL (0.47-4.68)
== END ==
PROVIDERS: Family Provider Family Medicine; PCP Family Medicine; Referring Provider Physician Assistant; Visit Provider Physician Assistant
DX: M85.80 Other specified disorders of bone density and structure, unspecified site (principal); Z78.0 Asymptomatic menopausal state; E78.5 Hyperlipidemia, unspecified; G47.33 Obstructive sleep apnea (adult) (pediatric); Z68.29 Body mass index [BMI] 29.0-29.9, adult; R73.03 Prediabetes
CPT/HCPCS: 36415; 80053; 80061; 82306; 83036; 84443; 85025

== ENCOUNTER 2024-07-05 08:15 | Outpatient (RCR) | payer BC, SELFPAY ==
--- NOTE | 2024-06-28 12:24 | PT.OIE ---
Current Diagnoses Uterovaginal prolapse, unspecified (06/28/24) Pelvic muscle wasting (06/28/24) Other specified postprocedural states (06/28/24) Past Medical History (Last Updated 06/20/24 @ 11:[address] PA-C) Allergic rhinitis (~1984) Ankle pain (~1988) Bulimia (~1978) Carpal tunnel syndrome (~1998) Chronic back pain (~1982) Chronic cough (~1984) Foot pain (~2018) Fractures (~2018) Gastric polyps Genital warts (~1980) Hyperlipidemia Insomnia due to medical condition Lichen planus (~2010) Obstructive sleep apnea, adult Osteoarthritis (~2020) Rectal bleed Ruptured tympanic membrane (~2013) Skin cancer (~1998) Sleep apnea (~2007) Vertigo (~2013) Past Surgical History (Last Reviewed 04/04/24 @ 09:49 by Katie Portillo DO) Anesthesia History of hemorrhoidectomy (~2006) History of repair of rectocele (~12/2019) [place] teeth removed (~1972) Visit Care Team Role Provider Type Gilbert Jensen MD Attending Provider Physician Family Provider Primary Care Provider Referring Provider Specialty: Family Practice Address: [address] [place] [address] Email: [email or web address] Physical Therapy Initial Evaluation PT-OP-A Visit Information Start: 06/28/24 08:13 Freq: Status: Active Protocol: Document 06/28/24 08:15 [facility] (Rec: 06/28/24 08:28 [facility] [id number]) Out-Patient Physical Therapy Visit Information Visit Information Visit Type Initial Evaluation Visit Start Time 08:15 Visit Stop Time 09:00 Visit Number 1 Evaluation Information Evaluation Date 06/28/24 PT-OP-B Current Condition Start: 06/28/24 08:13 Freq: Status: Active Protocol: Document 06/28/24 08:15 [facility] (Rec: 06/28/24 08:28 [facility] [id number]) Current Condition History of Current Condition Onset Date 4 weeks ago Current Complaints surgery 05/26/24 and pt has been under precautions since then History of Current Condition 4 weeks post op cystcele repair. she wants to return to strength training, and the pool. She has two more weeks before she can return to the pool. SHe will be gone July 17- She hasn't had any leakage just pelvic organ protrusion prior to surgery. 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 hx of 2 vaginal deliveries hx of lichen planus she has had since 2010 and she uses Clobetasol almost every day and this helps keep it under control PT-OP-I Pelvic Floor Start: 06/28/24 08:13 Freq: Status: Active Protocol: Document 06/28/24 08:15 [facility] (Rec: 06/28/24 12:10 [facility] [id number]) Pelvic Floor Assessment Urine Pelvic Floor Surgery Yes: 4 weeks s/p cystocele repair Pelvic Clock Pelvic Clock Other external assessment of pelvic clock reveals decreased ability to tighten and sustain a pelvic floor contraction Contraction Ability Voluntary Contraction Weak Voluntary Relaxation Weak Muscle Endurance (Seconds) 4 Comments Pelvic Floor Comments pt reported she is not yet cleared for vaginal pelvic floor assessment as she is 4 weeks s/p surgery. All pelvic floor assessments were done externally PT-OP-M Strength Start: 06/28/24 08:13 Freq: Status: Active Protocol: Document 06/28/24 08:15 [facility] (Rec: 06/28/24 12:23 [facility] [id number]) Trunk Strength Trunk Manual Muscle Testing Core Stabilization decreased inner core activation and strength Hip Strength Hip Manual Muscle Testing Left Flexion (L2) 4 Good Extension (S1) 4 Good PT-OP-Q Treatments Start: 06/28/24 08:13 Freq: Status: Active Protocol: Document 06/28/24 08:46 [facility] (Rec: 06/28/24 08:53 [facility] [id number]) Therapeutic Exercises Supine Exercises happy baby Reps/Minutes hold 1-2 min hooklying abduction with theraband Reps/Minutes x 10 reps adductor assist for pelvic floor Equipment Used x 10 reps pelvic floor long holds Reps/Minutes 5 sec hold and 10 sec rest Sitting Exercises sit to stand with pelvic floor engagement Reps/Minutes x 10 reps PT-OP-T Assessment and Plan Start: 06/28/24 08:13 Freq: Status: Active Protocol: Document 06/28/24 08:15 [facility] (Rec: 06/28/24 09:27 [facility] [id number]) Physical Therapy Assessment Rehab Potential Rehabilitation Potential Excellent Evaluation Complexity Number of Personal Factors/Comorbidities 1-2 Number of Body Systems Impaired 3 Clinical Presentation at Evaluation Stable Impairments Impairments Activity Tolerance,Functional Activities,Strength Goals 3 Impairment Vero lacks a home program for pelvic floor rehabilitation as well as generalized strength training. Jute Bag Cutting Machine Operator Goal (LTG) Vero is independent with a home program with good form LTG Duration 8 weeks 2 Impairment LE weakness and difficulty with standing squat using a hip hinge Short Term Goal (STG) Vero is able to perform sit- stand with hip hinge and pelvic floor brace STG Duration 4 weeks Jute Bag Cutting Machine Operator Goal (LTG) Vero is able to perform a hip hinge for her squat and demonstrate safe and good form for lifting a laundry basket and or dishes out of the appeals nurse LTG Duration 8 weeks 1 Impairment decreased pelvic floor strength and endurance s/p cystocele repair 05/26/24 Short Term Goal (STG) Vero is able to properly facilitate her pelvic floor and sustain a pelvic floor contraction for 10 seconds in supine STG Duration 4 weeks Jute Bag Cutting Machine Operator Goal (LTG) Vero is able to facilitate her pelvic floor in standing and is able to brace prior to cough or sneeze or before lifting a laundry basket LTG Duration 8 weeks Assessment Summary Assessment Vero is a 68 year old female who is 4 weeks s/p cystocele repair/anterior vaginal repair . She reports she was cleared to begin PT. Her goal is to work on strengthening to be able to return to a strength exercise program as well as return to exercising in the pool. She has two weeks before she is able to return to the pool for exercise. Vero has a history of hemorrhoidectomy in 2006 and rectocele repair in 2019. She reports having a history of chronic constipation as well as difficulty emptying her bowel without straining. She has worked hard getting her bowel movements under control. Prior to surgery she worked with her doctor on supplements for improved bowel movements and feels she is doing so much better now with bowel movements. She also has a history of allergies and chronic cough which she feels has contributed to her prolapse symptoms. At this point she is feeling really good about how her surgery went and is not complaining of any pressure or heaviness. She denies any urinary incontinence symptoms . Activities at home that feel difficult to her right now include bending over to unload the appeals nurse or bending over to diamond picker packages. 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 Vero requested external pelvic floor assessment today and time was spent on pelvic floor anatomy and proper pelvic floor contraction. She presents with core weakness but is able to facilitate her pelvic floor. Ability to sustain a pelvic floor contraction in limited. Vero presents with decreased functional strength of the LE and lacks hip hinge in a standing mini squat position. She would benefit from exercise progression and body mechanics training to prevent undue strain to her pelvic floor as well as pelvic floor strength and endurance program. Last is a good candidate for PT. Physical Therapy Plan Frequency and Duration Frequency of Treatment 1x/Week Duration of treatment (weeks) 8 Plan of Care Start Date 06/28/24 Plan of Care End Date 08/23/24 Therapeutic Interventions Therapeutic Interventions Home Exercise Program, Neuromuscular Re-education, Self-Care/Home Management, Therapeutic Exercises Modalities Biofeedback Next Visit Focus/Plan Next Note Type Treatment Note Next Visit Plan review exercises given today and progress pelvic floor strength and endurance training as tolerated.
--- NOTE | 2024-07-05 11:15 | PT.OTN ---
Current Diagnoses Uterovaginal prolapse, unspecified (07/05/24) Pelvic muscle wasting (07/05/24) Other specified postprocedural states (07/05/24) Physical Therapy Treatment Note PT-OP-A Visit Information Start: 06/28/24 08:13 Freq: Status: Active Protocol: Document 07/05/24 08:13 [facility] (Rec: 07/05/24 08:59 [facility] [id number]) Out-Patient Physical Therapy Visit Information Visit Information Visit Type Treatment Note PT-OP-B Current Condition Start: 06/28/24 08:13 Freq: Status: Active Protocol: Document 06/28/24 08:15 [facility] (Rec: 06/28/24 08:28 [facility] [id number]) Current Condition History of Current Condition Onset Date 4 weeks ago Current Complaints surgery 05/26/24 and pt has been under precautions since then History of Current Condition 4 weeks post op cystcele repair. she wants to return to strength training, and the pool. She has two more weeks before she can return to the pool. SHe will be gone July 17- She hasn't had any leakage just pelvic organ protrusion prior to surgery. 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 hx of 2 vaginal deliveries hx of lichen planus she has had since 2010 and she uses Clobetasol almost every day and this helps keep it under control PT-OP-C Subjective Start: 06/28/24 08:13 Freq: Status: Active Protocol: Document 07/05/24 08:15 [facility] (Rec: 07/05/24 11:09 [facility] [id number]) OP-PT Subjective Patient Comments Patient Comments Vero reports she has been working on her exercises and they are going well. She is looking forward to being able to get into the pool in [place] PT-OP-I Pelvic Floor Start: 06/28/24 08:13 Freq: Status: Active Protocol: Document 06/28/24 08:15 [facility] (Rec: 06/28/24 12:10 [facility] [id number]) Pelvic Floor Assessment Urine Pelvic Floor Surgery Yes: 4 weeks s/p cystocele repair Pelvic Clock Pelvic Clock Other external assessment of pelvic clock reveals decreased ability to tighten and sustain a pelvic floor contraction Contraction Ability Voluntary Contraction Weak Voluntary Relaxation Weak Muscle Endurance (Seconds) 4 Comments Pelvic Floor Comments pt reported she is not yet cleared for vaginal pelvic floor assessment as she is 4 weeks s/p surgery. All pelvic floor assessments were done externally PT-OP-M Strength Start: 06/28/24 08:13 Freq: Status: Active Protocol: Document 06/28/24 08:15 [facility] (Rec: 06/28/24 12:23 [facility] [id number]) Trunk Strength Trunk Manual Muscle Testing Core Stabilization decreased inner core activation and strength Hip Strength Hip Manual Muscle Testing Left Flexion (L2) 4 Good Extension (S1) 4 Good PT-OP-Q Treatments Start: 06/28/24 08:13 Freq: Status: Active Protocol: Document 07/05/24 08:13 [facility] (Rec: 07/05/24 08:59 [facility] [id number]) Therapeutic Exercises Supine Exercises bridge with theraband Reps/Minutes x 10 reps level 3 TB happy baby Reps/Minutes hold 1-2 min hooklying abduction with theraband Equipment Used level 3 TB Reps/Minutes x 10 reps adductor assist for pelvic floor Equipment Used x 10 reps 5 at 10 second holds and 5 at 5 sec holds pelvic floor long holds Reps/Minutes 10 sec hold and 10 sec rest Standing Exercises standing side steps with theraband Reps/Minutes 1 min PT-OP-T Assessment and Plan Start: 06/28/24 08:13 Freq: Status: Active Protocol: Document 07/05/24 08:15 [facility] (Rec: 07/05/24 11:14 [facility] [id number]) Physical Therapy Assessment Goals 3 Impairment Vero lacks a home program for pelvic floor rehabilitation as well as generalized strength training. Senior Care Goal (LTG) Vero is independent with a home program with good form LTG Duration 8 weeks 2 Impairment LE weakness and difficulty with standing squat using a hip hinge Short Term Goal (STG) Vero is able to perform sit- stand with hip hinge and pelvic floor brace STG Duration 4 weeks Maintenance Scheduler Goal (LTG) Vero is able to perform a hip hinge for her squat and demonstrate safe and good form for lifting a laundry basket and or dishes out of the supervisor sulfuric acid plant LTG Duration 8 weeks 1 Impairment decreased pelvic floor strength and endurance s/p cystocele repair 05/26/24 Short Term Goal (STG) Vero is able to properly facilitate her pelvic floor and sustain a pelvic floor contraction for 10 seconds in supine STG Duration 4 weeks Senior Care Goal (LTG) Vero is able to facilitate her pelvic floor in standing and is able to brace prior to cough or sneeze or before lifting a laundry basket LTG Duration 8 weeks Assessment Summary Assessment Vero is tolerating pelvic floor exercises well and I did add on today working on standing squats as well as side steps with theraband. We discussed exercises she can do in the pool as well as she wont be seen until she returns from [place]. At that time we can start EMG biofeedback Physical Therapy Plan Frequency and Duration Frequency of Treatment 1x/Week Duration of treatment (weeks) 8 Plan of Care Start Date 06/28/24 Plan of Care End Date 08/23/24 Therapeutic Interventions Therapeutic Interventions Home Exercise Program, Neuromuscular Re-education, Self-Care/Home Management, Therapeutic Exercises Modalities Biofeedback Next Visit Focus/Plan Next Note Type Treatment Note Next Visit Plan begin EMG biofeedback for pelvic floor strength and endurance training
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
== END 2024-08-04 10:46 | disposition home or self-care (01) ==
LOC: PHYS 08:15
PROVIDERS: Family Provider Family Medicine; PCP Family Medicine; Referring Provider Family Medicine; Visit Provider Family Medicine
DX: N81.4 Uterovaginal prolapse, unspecified (principal); Z98.890 Other specified postprocedural states; N81.84 Pelvic muscle wasting
CPT/HCPCS: 97110; 97162

== ENCOUNTER → 2024-08-31 10:28 | Outpatient (CLI) | payer BC, SELFPAY ==
[2024-08-31 11:16] LABS: Influenza A - CEPHEID Flu A NEGATIVE (NEGATIVE); Influenza B - CEPHEID Flu B NEGATIVE (NEGATIVE)
[2024-08-31 11:18] LABS: COVID-19 CEPHEID 4-PLEX PCR POSITIVE (Negative)
== END ==
PROVIDERS: PCP Family Medicine; Visit Provider Family Medicine
DX: R05.1 Acute cough (principal)
CPT/HCPCS: 87637

== ENCOUNTER → 2024-10-31 08:43 | Outpatient (CLI) | payer BC, SELFPAY ==
[2024-10-31 10:36] LABS: Alanine Aminotransferase 15 IU/L (<35); Albumin 4.3 g/dL (3.5-5.0); Albumin Globulin Ratio 1.7 (1.0-2.8); Alkaline Phosphatase 63 U/L (38-126); Blood Urea Nitrogen 9 mg/dL (7-17); Calcium 9.3 mg/dL (8.4-10.2); Carbon Dioxide 25 mmol/L (22-32); Chloride 104 mmol/L (98-107); Cholesterol 196 mg/dL (140-199); Estimated Glomerular Filt Rate > 60 mL/min (>60); Globulin 2.6 g/dL (1.7-4.1); Glucose 77 mg/dL (70-99); HDL Cholesterol 61 mg/dL (40-60); HEMOLYSIS < 15 (0-50); Hemoglobin A1C% w Est Avg Glu 5.4 % (4.0-6.0); Potassium 4.3 mmol/L (3.4-5.1); Sodium 138 mmol/L (137-145); Total Protein 6.9 g/dL (6.3-8.2); Triglycerides 53 mg/dL (35-150)
== END ==
PROVIDERS: PCP Family Medicine; Referring Provider Family Medicine; Visit Provider Family Medicine
DX: E78.2 Mixed hyperlipidemia (principal); R73.9 Hyperglycemia, unspecified; Z68.29 Body mass index [BMI] 29.0-29.9, adult
CPT/HCPCS: 36415; 80053; 80061; 83036